=== PATIENT | female | born 1970 | race Caucasian/White ===

== ENCOUNTER 2018-08-05 14:03 | Inpatient (IN) | payer SELFPAY ==
[2018-08-05 14:49] VITALS: BMI 32.5
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
[2018-08-06] MEDS ORDERED: MAGNESIUM HYDROX 2400MG/30ML ORAL SUSPENSION 30 ML CUP PO PRN (00:04)
[2018-08-06] MEDS ORDERED: MAGNESIUM CITRATE 300 ML BOTTLE PO PRN (00:04)
[2018-08-06] MEDS ORDERED: DICYCLOMINE HCL 10 MG CAPSULE PO PRN (00:04)
[2018-08-06] MEDS ORDERED: ONDANSETRON *ODT* 4 MG TABLET SL PRN (00:04)
[2018-08-06] MEDS ORDERED: ACETAMINOPHEN 325 MG TABLET (FP) PO PRN ×2 (00:04)
[2018-08-06] MEDS ORDERED: BISMUTH SUBSALICYLATE 524 MG/30 ML UD PO PRN (00:04)
[2018-08-06] MEDS ORDERED: MAG HYDROX/AL HYDROX/SIMETH 30 ML UNIT-DOSE CUP PO PRN (00:04)
[2018-08-06] MEDS ORDERED: guaiFENesin 200 MG/10 ML 10 ML UNIT-DOSE CUPS PO PRN (00:04)
[2018-08-06] MEDS ORDERED: P-EPHED 60MG/TRIPROLIDI 2.5MG TABLET PO PRN (00:04)
[2018-08-06] MEDS ORDERED: hydrOXYzine PAMOATE 25 MG CAPSULE (FP) PO PRN (00:04)
[2018-08-06] MEDS ORDERED: MENTHOL/PHENOL 1 EACH UD MM PRN (00:04)
[2018-08-06] MEDS ORDERED: METHOCARBAMOL 500 MG TABLET PO PRN (00:04)
[2018-08-06] MEDS: chlordiazePOXIDE HCL 25 MG CAPSULE PO PRN ×2 (00:43→14:36)
[2018-08-06] MEDS: MELATONIN 5 MG TABLETS PO PRN ×2 (00:58→22:06)
[2018-08-06] MEDS: chlordiazePOXIDE HCL 25 MG CAPSULE PO SCH ×4 (05:37→22:04)
[2018-08-06] MEDS: AMOX TR/POT CLAV 875MG/125MG TABLETS (FP) PO SCH ×2 (07:17→17:14)
[2018-08-06 10:16] LABS: ALBUMIN 3.7 g/dl (3.4-5.0); BILIRUBIN,TOTAL 0.7 mg/dL (0.2-1); CALCIUM 8.8 mg/dL (8.5-10.1); CREATININE 0.6 mg/dL (0.55-1.3); POTASSIUM 3.4 mmol/L (3.5-5.1); TOT PROT 7.4 g/dl (6.4-8.2)
[2018-08-06 10:23] LABS: BASO % 1.2 % (0-2.0); EOS % 8.1 % (0-4.5); HEMATOCRIT 37.6 % (32.4-45.2); HEMOGLOBIN 12.5 GM/dL (10.7-15.3); LYMPH % 24.9 % (8-40); MCH 31.3 pg (25.7-33.7); MCHC 33.3 g/dl (32.0-36.0); MEAN CELL VOLUME 93.8 fl (80-96); MEAN PLT VOLUME 6.9 fl (7.5-11.1); MONO % 7.3 % (3.8-10.2); NEUT % 58.5 % (42.8-82.8); PLATELET COUNT 173 K/MM3 (134-434); RBC 4.01 M/mm3 (3.60-5.2); RDW 14.3 % (11.6-15.6); WHITE BLOOD COUNT 6.3 K/mm3 (4.0-10.0)
[2018-08-06] MEDS: PRENATAL VITAMINS W/ FOLIC ACID TABLET (FP) PO SCH (10:56)
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
--- NOTE | 2018-08-06 11:31 | PN ---
[facility] Progress Note Note: Patient does not want to be seen
--- NOTE | 2018-08-06 11:32 | EKG ---
Test Reason : Blood Pressure : / mmHG Vent. Rate : 087 BPM Atrial Rate : 087 BPM P-R Int : 160 ms QRS Dur : 086 ms QT Int : 434 ms P-R-T Axes : 059 060 030 degrees QTc Int : 522 ms NORMAL SINUS RHYTHM PROLONGED QT ABNORMAL ECG NO PREVIOUS ECGS AVAILABLE Confirmed by Zachary Wade MD ([id number]) on 08/06/2018 11:31:36 AM Referred By: Confirmed By:Zachary Wade MD
[2018-08-06] MEDS: POTASSIUM CHLORIDE ORAL LIQUID 20 MEQ/15 ML PO SCH (12:57)
[2018-08-06 20:50] LABS: URINE APPEARANCE CLOUDY; URINE BILIRUBIN NEGATIVE (NEGATIVE); URINE COLOR YELLOW; URINE GLUCOSE (UA) NEGATIVE (NEGATIVE); URINE KETONE 1+ (NEGATIVE); URINE LEUK ESTERASE 3+ (NEGATIVE); URINE NITRITE POSITIVE (NEGATIVE); URINE PROTEIN TRACE (NEGATIVE)
[2018-08-06] MEDS: THIAMINE HCL 100 MG TABLET (FP) PO SCH (22:04)
[2018-08-06] MEDS: IBUPROFEN 400 MG TABLET (FP) PO PRN (22:05)
[2018-08-06 22:13] LABS: URINE RBC 4 /hpf (0-4)
[2018-08-06 22:14] LABS: EPI CELLS 4 /HPF (0-5/HPF); HYALINE CASTS 9 /lpf (0-8); URINE BACTERIA 582 /hpf (NEGATIVE); URINE WBC 198 /hpf (0-5)
[2018-08-07] MEDS: chlordiazePOXIDE HCL 25 MG CAPSULE PO SCH ×4 (06:14→22:12)
[2018-08-07] MEDS: AMOX TR/POT CLAV 875MG/125MG TABLETS (FP) PO SCH ×2 (07:04→18:32)
[2018-08-07] MEDS: IBUPROFEN 400 MG TABLET (FP) PO PRN (08:01)
[2018-08-07] MEDS ORDERED: IBUPROFEN 600 MG TABLET (FP) PO PRN (09:42)
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
[2018-08-07] MEDS: PRENATAL VITAMINS W/ FOLIC ACID TABLET (FP) PO SCH (10:03)
[2018-08-07] MEDS: POTASSIUM CHLORIDE ORAL LIQUID 20 MEQ/15 ML PO SCH (10:04)
[2018-08-07] MEDS: FLUoxetine HCL 20 MG CAPSULE (FP) PO SCH (10:47)
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
[2018-08-07] MEDS: MELATONIN 5 MG TABLETS PO PRN (22:12)
[2018-08-07] MEDS: THIAMINE HCL 100 MG TABLET (FP) PO SCH (22:12)
[2018-08-08] MEDS ORDERED: chlordiazePOXIDE HCL 10 MG CAPSULE PO PRN (05:00)
[2018-08-08] MEDS: chlordiazePOXIDE HCL 10 MG CAPSULE PO SCH ×4 (05:22→22:16)
[2018-08-08] MEDS: AMOX TR/POT CLAV 875MG/125MG TABLETS (FP) PO SCH ×2 (07:50→18:01)
[2018-08-08] MEDS: FLUoxetine HCL 20 MG CAPSULE (FP) PO SCH (10:04)
[2018-08-08] MEDS: PRENATAL VITAMINS W/ FOLIC ACID TABLET (FP) PO SCH (10:04)
[2018-08-08] MEDS ORDERED: NAPHAZOLINE/PHENIRAMINE OPHTHALMIC 15 ML BOTTLE OU PRN (10:11)
[2018-08-08] MEDS: POTASSIUM CHLORIDE ORAL LIQUID 20 MEQ/15 ML PO SCH (11:42)
--- NOTE | 2018-08-08 12:05 | PN ---
S CIWA - CIWA Score Nausea/Vomitin-No Nausea/No Vomiting Muscle Tremors: 2 Anxiety: 1-Mildly Anxious Agitation: 1-Slight > Activity Paroxysmal Sweats: No Perspiration Orientation: 0-Oriented Tacttile Disturbances: 0-None Auditory Disturbances: 0-None Visual Disturbances: 0-None Headache: 1-Very Mild CIWA-Ar Total Score: 5 [facility] Progress Note (SOAP) Subjective: mild headache dry/itchy eyes anxiety Objective: 08/08/18 12:04 Vital Signs Temperature 97.7 F 08/08/18 10:02 Pulse Rate 86 08/08/18 10:02 Respiratory Rate 18 08/08/18 10:02 Blood Pressure 125/91 08/08/18 10:02 O2 Sat by Pulse Oximetry (%) Laboratory Tests 08/06/18 08/06/18 08/06/18 07:35 07:35 07:40 WBC 6.3 RBC 4.01 Hgb 12.5 Hct 37.6 MCV 93.8 MCH 31.3 MCHC 33.3 RDW 14.3 Plt Count 173 MPV 6.9 L Absolute Neuts (auto) 3.7 Neutrophils % 58.5 Lymphocytes % 24.9 Monocytes % 7.3 Eosinophils % 8.1 H Basophils % 1.2 Nucleated RBC % 0 Sodium 138 Potassium 3.4 L Chloride 100 Carbon Dioxide 28 Anion Gap 11 BUN 8 Creatinine 0.6 Est GFR (CKD-EPI)AfAm 126.69 Est GFR (CKD-EPI)NonAf 109.31 Random Glucose 79 Calcium 8.8 Total Bilirubin 0.7 AST 96 H ALT 71 H Alkaline Phosphatase 78 Total Protein 7.4 Albumin 3.7 Urine Color Urine Appearance Urine pH Ur Specific [place] Urine Protein Urine Glucose (UA) Urine Ketones Urine Blood Urine Nitrite Urine Bilirubin Urine Urobilinogen Ur Leukocyte Esterase Urine WBC (Auto) Urine RBC (Auto) Urine Casts (Auto) U Epithel Cells (Auto) Urine Bacteria (Auto) RPR Titer Nonreactive 08/06/18 15:12 WBC RBC Hgb Hct MCV MCH MCHC RDW Plt Count MPV Absolute Neuts (auto) Neutrophils % Lymphocytes % Monocytes % Eosinophils % Basophils % Nucleated RBC % Sodium Potassium Chloride Carbon Dioxide Anion Gap BUN Creatinine Est GFR (CKD-EPI)AfAm Est GFR (CKD-EPI)NonAf Random Glucose Calcium Total Bilirubin AST ALT Alkaline Phosphatase Total Protein Albumin Urine Color Yellow Urine Appearance Cloudy Urine pH 8.0 Ur Specific [place] 1.018 Urine Protein Trace Urine Glucose (UA) Negative Urine Ketones 1+ H Urine Blood Negative Urine Nitrite Positive H Urine Bilirubin Negative Urine Urobilinogen 1.0 Ur Leukocyte Esterase 3+ H Urine WBC (Auto) 198 Urine RBC (Auto) 4 Urine Casts (Auto) 9 U Epithel Cells (Auto) 4 Urine Bacteria (Auto) 582 RPR Titer labs noted pt denies UTI aaox3 ambulating no acute distress Assessment: 08/08/18 12:04 mild withdrawal sx Plan: continue detox increase fluids visine ordered vitamin a&d ointment.
[2018-08-08] MEDS: VITAMINS A AND D TOPICAL OINTMENT 60 GM TUBE TP SCH ×3 (13:22→23:43)
[2018-08-08] MEDS: THIAMINE HCL 100 MG TABLET (FP) PO SCH (22:16)
[2018-08-08] MEDS: MELATONIN 5 MG TABLETS PO PRN (22:17)
[2018-08-09] MEDS: chlordiazePOXIDE HCL 10 MG CAPSULE PO SCH ×2 (06:53→17:14)
[2018-08-09] MEDS: VITAMINS A AND D TOPICAL OINTMENT 60 GM TUBE TP SCH ×3 (06:53→17:23)
[2018-08-09] MEDS: AMOX TR/POT CLAV 875MG/125MG TABLETS (FP) PO SCH ×2 (07:10→17:14)
[2018-08-09] MEDS: FLUoxetine HCL 20 MG CAPSULE (FP) PO SCH (10:40)
[2018-08-09] MEDS: PRENATAL VITAMINS W/ FOLIC ACID TABLET (FP) PO SCH (10:40)
--- NOTE | 2018-08-09 12:36 | PN ---
[facility] CIWA - CIWA Score Nausea/Vomitin-No Nausea/No Vomiting Muscle Tremors: 1-None Visible, but [place] Anxiety: 1-Mildly Anxious Agitation: 1-Slight > Activity Paroxysmal Sweats: No Perspiration Orientation: 0-Oriented Tacttile Disturbances: 0-None Auditory Disturbances: 0-None Visual Disturbances: 0-None Headache: 0-None Present CIWA-Ar Total Score: 3 [facility] Progress Note (SOAP) Subjective: anxiety Objective: 08/09/18 12:35 Vital Signs Temperature 98.5 F 08/09/18 10:36 Pulse Rate 85 08/09/18 10:36 Respiratory Rate 18 08/09/18 10:36 Blood Pressure 122/79 08/09/18 10:36 O2 Sat by Pulse Oximetry (%) aaox3 ambulating no acute distress Assessment: 08/09/18 12:36 mild withdrawal sx Plan: continue detox increase fluids d/c in am
[2018-08-09] MEDS: THIAMINE HCL 100 MG TABLET (FP) PO SCH (22:31)
[2018-08-09] MEDS: MELATONIN 5 MG TABLETS PO PRN (22:32)
[2018-08-10] MEDS: VITAMINS A AND D TOPICAL OINTMENT 60 GM TUBE TP SCH ×2 (01:52→06:15)
[2018-08-10] MEDS: chlordiazePOXIDE HCL 10 MG CAPSULE PO SCH (05:58)
[2018-08-10] MEDS: AMOX TR/POT CLAV 875MG/125MG TABLETS (FP) PO SCH (07:08)
[2018-08-10 09:24] VITALS: BP 110/57; PULSE 78; TEMP 97.7
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
== END 2018-08-10 09:13 | disposition home or self-care (01) | DRG 775 ==
LOC: YASAS 14:03 → Y6N 23:52
PROVIDERS: ADMIT Surgery; ATTEND Surgery
PROC: HZ2ZZZZ Detoxification Services for Substance Abuse Treatment (ICD-10-PCS; principal; 2018-08-05)
DX: F10.230 Alcohol dependence with withdrawal, uncomplicated (principal); F10.280 Alcohol dependence with alcohol-induced anxiety disorder; F10.282 Alcohol dependence with alcohol-induced sleep disorder; F43.10 Post-traumatic stress disorder, unspecified; S09.93XD Unspecified injury of face, subsequent encounter; W19.XXXD Unspecified fall, subsequent encounter
CPT/HCPCS: 36415; 80053; 81003; 85025; 86593; 93005; 93010

== ENCOUNTER 2018-08-05 15:49 | Emergency (ER) | payer SELFPAY | END 2018-08-05 23:24 | disposition short-term general hospital (02) | LOC: JER 15:49 ==

== ENCOUNTER 2018-08-12 13:13 | Inpatient (IN) | payer OTHER ==
[2018-08-12 17:33] VITALS: BMI 31.4
[2018-08-12] MEDS ORDERED: MAGNESIUM HYDROX 2400MG/30ML ORAL SUSPENSION 30 ML CUP PO PRN (23:44)
[2018-08-12] MEDS ORDERED: ACETAMINOPHEN 325 MG TABLET (FP) PO PRN (23:44)
[2018-08-12] MEDS ORDERED: IBUPROFEN 400 MG TABLET (FP) PO PRN (23:44)
[2018-08-12] MEDS ORDERED: MAG HYDROX/AL HYDROX/SIMETH 30 ML UNIT-DOSE CUP PO PRN (23:44)
[2018-08-12] MEDS ORDERED: MAGNESIUM CITRATE 300 ML BOTTLE PO PRN (23:44)
[2018-08-12] MEDS ORDERED: LOPERAMIDE HCL 2 MG CAPSULE PO PRN (23:44)
[2018-08-12] MEDS ORDERED: guaiFENesin 200 MG/10 ML 10 ML UNIT-DOSE CUPS PO PRN (23:44)
--- NOTE | 2018-08-13 00:09 | HP ---
[facility] Rehab Assess/Revision - Admission History Admitted to Rehab from: [facility] [place] - Vital signs Vital Signs: Vital Signs Period Temp Pulse Resp BP Sys/Khan Pulse Ox Last 24 Hr 97.1 F-98.2 F 64-81 18-18 95-118/69-77 - Findings Detox History & Physical reviewed: Yes Concur with findings: Yes Comments/Additional Findings: PLEASE SEE THE ORDER SHEET FOR MORE DETAILS. FURTHER ORDERS - PER THE ATTENDINGS. Inpatient Rehab Admission - Rehab Decision to Admit Inpatient rehab admission?: Yes - Initial Determination Are CD services needed?: No Free of communicable disease: No Not in need of hospitalization: No - Rehab Admission Criteria Previous failed treatment: No Poor recovery environment: Yes Comorbidities: No Lacks judgement: Yes Patient is meeting Inpatient Rehab admission criteria:: Yes
[2018-08-13] MEDS: hydrOXYzine PAMOATE 25 MG CAPSULE (FP) PO PRN ×2 (00:51→21:15)
[2018-08-13] MEDS: MELATONIN 5 MG TABLETS PO PRN ×2 (00:51→21:15)
[2018-08-13] MEDS: PRENATAL VITAMINS W/ FOLIC ACID TABLET (FP) PO SCH (09:59)
[2018-08-13] MEDS: FLUoxetine HCL 20 MG CAPSULE (FP) PO SCH (09:59)
[2018-08-13 11:40] LABS: HEMOGLOBIN 12.4 GM/dL (10.7-15.3); MCH 31.7 pg (25.7-33.7); MCHC 33.5 g/dl (32.0-36.0); MEAN CELL VOLUME 94.7 fl (80-96); MEAN PLT VOLUME 7.4 fl (7.5-11.1); PLATELET COUNT 252 K/MM3 (134-434); RBC 3.91 M/mm3 (3.60-5.2); RDW 14.4 % (11.6-15.6); WHITE BLOOD COUNT 6.1 K/mm3 (4.0-10.0)
[2018-08-13 12:03] LABS: PH,URINE 5.5 (5.0-8.0); URINE APPEARANCE CLEAR; URINE BILIRUBIN NEGATIVE (NEGATIVE); URINE COLOR YELLOW; URINE GLUCOSE (UA) NEGATIVE (NEGATIVE); URINE KETONE NEGATIVE (NEGATIVE); URINE LEUK ESTERASE NEGATIVE (NEGATIVE); URINE NITRITE NEGATIVE (NEGATIVE); URINE PROTEIN NEGATIVE (NEGATIVE); URINE UROBILINOGEN 0.2 mg/dL (0.2-1.0)
[2018-08-13 12:04] LABS: ALBUMIN 3.8 g/dl (3.4-5.0); BILIRUBIN,TOTAL 0.5 mg/dL (0.2-1); CREATININE 0.7 mg/dL (0.55-1.3); POTASSIUM 4.2 mmol/L (3.5-5.1)
[2018-08-13] MEDS: MENTHOL/PHENOL 1 EACH UD MM PRN (13:40)
[2018-08-13] MEDS: THIAMINE HCL 100 MG TABLET (FP) PO SCH (21:14)
[2018-08-14] MEDS: MENTHOL/PHENOL 1 EACH UD MM PRN (08:58)
[2018-08-14] MEDS: FLUoxetine HCL 20 MG CAPSULE (FP) PO SCH (09:00)
[2018-08-14] MEDS: PRENATAL VITAMINS W/ FOLIC ACID TABLET (FP) PO SCH (09:00)
[2018-08-14] MEDS: THIAMINE HCL 100 MG TABLET (FP) PO SCH (21:53)
[2018-08-14] MEDS: MELATONIN 5 MG TABLETS PO PRN (21:54)
[2018-08-14] MEDS: hydrOXYzine PAMOATE 25 MG CAPSULE (FP) PO PRN (21:54)
[2018-08-15] MEDS: MENTHOL/PHENOL 1 EACH UD MM PRN ×2 (06:31→11:42)
[2018-08-15] MEDS: PRENATAL VITAMINS W/ FOLIC ACID TABLET (FP) PO SCH (10:14)
[2018-08-15] MEDS: FLUoxetine HCL 20 MG CAPSULE (FP) PO SCH (10:14)
[2018-08-15] MEDS: MELATONIN 5 MG TABLETS PO PRN (21:37)
[2018-08-15] MEDS: hydrOXYzine PAMOATE 25 MG CAPSULE (FP) PO PRN (21:37)
[2018-08-15] MEDS: THIAMINE HCL 100 MG TABLET (FP) PO SCH (21:37)
[2018-08-16] MEDS: FLUoxetine HCL 20 MG CAPSULE (FP) PO SCH (10:09)
[2018-08-16] MEDS: PRENATAL VITAMINS W/ FOLIC ACID TABLET (FP) PO SCH (10:09)
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
[2018-08-16] MEDS: P-EPHED 60MG/TRIPROLIDI 2.5MG TABLET PO PRN (12:46)
[2018-08-16] MEDS: THIAMINE HCL 100 MG TABLET (FP) PO SCH (21:26)
[2018-08-16] MEDS: MELATONIN 5 MG TABLETS PO PRN (21:26)
[2018-08-16] MEDS: hydrOXYzine PAMOATE 25 MG CAPSULE (FP) PO PRN (21:28)
[2018-08-17] MEDS: FLUoxetine HCL 20 MG CAPSULE (FP) PO SCH (10:22)
[2018-08-17] MEDS: PRENATAL VITAMINS W/ FOLIC ACID TABLET (FP) PO SCH (10:22)
[2018-08-17] MEDS: P-EPHED 60MG/TRIPROLIDI 2.5MG TABLET PO PRN (14:49)
[2018-08-17] MEDS: MELATONIN 5 MG TABLETS PO PRN (21:14)
[2018-08-17] MEDS: hydrOXYzine PAMOATE 25 MG CAPSULE (FP) PO PRN (21:14)
[2018-08-17] MEDS: THIAMINE HCL 100 MG TABLET (FP) PO SCH (21:14)
[2018-08-18] MEDS: PRENATAL VITAMINS W/ FOLIC ACID TABLET (FP) PO SCH (10:29)
[2018-08-18] MEDS: FLUoxetine HCL 20 MG CAPSULE (FP) PO SCH (10:29)
[2018-08-18] MEDS: P-EPHED 60MG/TRIPROLIDI 2.5MG TABLET PO PRN ×2 (10:30→21:29)
--- NOTE | 2018-08-18 14:06 | PN ---
[facility] Progress Note Note: Patient is scheduled for discharge tomorrow. Script for 30 days supply of Prozac 20 mg/day will be electronically transmitted to [facility] at [address] [place] [id number]
[2018-08-18] MEDS: THIAMINE HCL 100 MG TABLET (FP) PO SCH (21:28)
[2018-08-18] MEDS: hydrOXYzine PAMOATE 25 MG CAPSULE (FP) PO PRN (21:28)
[2018-08-19 07:12] VITALS: BP 115/79; PULSE 80; TEMP 97.8
[2018-08-19] MEDS: PRENATAL VITAMINS W/ FOLIC ACID TABLET (FP) PO SCH (09:32)
[2018-08-19] MEDS: FLUoxetine HCL 20 MG CAPSULE (FP) PO SCH (09:32)
--- NOTE | 2018-08-19 09:39 | PN ---
[facility] Progress Note (SOAP) Subjective: PT COMPLETED REHAB AND DISCHARGED TODAY. PT MET WITH COUNSELLING AND HAS BEEN REFERRED TO [facility] FOR CD AFTERCARE. PT REPORTS SHE HAS A PCP DR. HALL(PT NOT SURE OF SPELLING) FOR MEDICAL AND A PSYCHIATRIST DR. WALKER ON [address] [facility] IN [facility]. PT IS ALERT O X 3. DENIES S/H/I. Objective: 08/19/18 09:37 Vital Signs - 24 hr 08/19/18 08/19/18 08/19/18 00:30 03:30 07:11 Temperature 97.8 F Pulse Rate 80 Respiratory 18 18 18 Rate Blood Pressure 115/79 Laboratory Tests 08/13/18 08/13/18 08/13/18 08:40 08:40 08:40 WBC 6.1 RBC 3.91 Hgb 12.4 Hct 37.0 MCV 94.7 MCH 31.7 MCHC 33.5 RDW 14.4 Plt Count 252 D MPV 7.4 L Sodium 134 L Potassium 4.2 Chloride 101 Carbon Dioxide 27 Anion Gap 6 L BUN 9 Creatinine 0.7 Est GFR (CKD-EPI)AfAm 120.43 Est GFR (CKD-EPI)NonAf 103.90 Random Glucose 82 Calcium 9.0 Total Bilirubin 0.5 AST 25 ALT 42 Alkaline Phosphatase 64 Total Protein 7.0 Albumin 3.8 Urine Color Urine Appearance Urine pH Ur Specific [place] Urine Protein Urine Glucose (UA) Urine Ketones Urine Blood Urine Nitrite Urine Bilirubin Urine Urobilinogen Ur Leukocyte Esterase RPR Titer Nonreactive 08/13/18 09:30 WBC RBC Hgb Hct MCV MCH MCHC RDW Plt Count MPV Sodium Potassium Chloride Carbon Dioxide Anion Gap BUN Creatinine Est GFR (CKD-EPI)AfAm Est GFR (CKD-EPI)NonAf Random Glucose Calcium Total Bilirubin AST ALT Alkaline Phosphatase Total Protein Albumin Urine Color Yellow Urine Appearance Clear Urine pH 5.5 D Ur Specific Pinon 1.009 L Urine Protein Negative Urine Glucose (UA) Negative Urine Ketones Negative Urine Blood Negative Urine Nitrite Negative Urine Bilirubin Negative Urine Urobilinogen 0.2 Ur Leukocyte Esterase Negative RPR Titer Home Medications Medication Instructions Recorded Fluoxetine HCl [Prozac -] 20 mg PO DAILY #30 capsule 08/18/18 08/19/18 09:43 Assessment: 08/19/18 09:37 NAD MEDICALLY STABLE Plan: FOLLOW UP WITH CD AFTERCARE RECOMMEDATION. FOLLOW UP WITH MEDICAL MANAGEMENT WITHIN 1 WEEK AFTER DISCHARGE.
== END 2018-08-19 09:50 | disposition home or self-care (01) | DRG 772 ==
LOC: YASAS 13:13 → Y3E 20:21
PROVIDERS: ADMIT Neuromusculoskeletal Medicine & OMM; ATTEND Neuromusculoskeletal Medicine & OMM
PROC: HZ42ZZZ Group Counseling for Substance Abuse Treatment, Cognitive-Behavioral (ICD-10-PCS; principal; 2018-08-12)
DX: F10.20 Alcohol dependence, uncomplicated (principal); J32.4 Chronic pansinusitis; S09.93XA Unspecified injury of face, initial encounter; Z86.69 Personal history of other diseases of the nervous system and sense organs; R56.9 Unspecified convulsions; X58.XXXA Exposure to other specified factors, initial encounter; Y93.89 Activity, other specified; Y92.89 Other specified places as the place of occurrence of the external cause; Y99.8 Other external cause status
CPT/HCPCS: 36415; 80053; 81003; 85027; 86593

== ENCOUNTER 2018-09-03 15:51 | Inpatient (IN) | payer OTHER ==
[2018-09-03 18:45] VITALS: BMI 29.2
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
[2018-09-03] MEDS ORDERED: P-EPHED 60MG/TRIPROLIDI 2.5MG TABLET PO PRN (20:24)
[2018-09-03] MEDS ORDERED: METHOCARBAMOL 500 MG TABLET PO PRN (20:24)
[2018-09-03] MEDS ORDERED: DICYCLOMINE HCL 10 MG CAPSULE PO PRN (20:24)
[2018-09-03] MEDS ORDERED: ACETAMINOPHEN 325 MG TABLET (FP) PO PRN ×2 (20:24)
[2018-09-03] MEDS ORDERED: BISMUTH SUBSALICYLATE 524 MG/30 ML UD PO PRN (20:24)
[2018-09-03] MEDS ORDERED: MAGNESIUM CITRATE 300 ML BOTTLE PO PRN (20:24)
[2018-09-03] MEDS ORDERED: guaiFENesin 200 MG/10 ML 10 ML UNIT-DOSE CUPS PO PRN (20:24)
[2018-09-03] MEDS ORDERED: MENTHOL/PHENOL 1 EACH UD MM PRN (20:24)
[2018-09-03] MEDS ORDERED: ONDANSETRON *ODT* 4 MG TABLET SL PRN (20:24)
[2018-09-03] MEDS ORDERED: MELATONIN 5 MG TABLETS PO PRN (20:24)
[2018-09-03] MEDS ORDERED: IBUPROFEN 400 MG TABLET (FP) PO PRN (20:24)
[2018-09-03] MEDS ORDERED: MAG HYDROX/AL HYDROX/SIMETH 30 ML UNIT-DOSE CUP PO PRN (20:24)
[2018-09-03] MEDS ORDERED: MAGNESIUM HYDROX 2400MG/30ML ORAL SUSPENSION 30 ML CUP PO PRN (20:24)
[2018-09-03] MEDS: chlordiazePOXIDE HCL 25 MG CAPSULE PO SCH (22:13)
[2018-09-03] MEDS: THIAMINE HCL 100 MG TABLET (FP) PO SCH (22:14)
[2018-09-04] MEDS: chlordiazePOXIDE HCL 25 MG CAPSULE PO PRN ×2 (00:42→13:33)
[2018-09-04] MEDS: chlordiazePOXIDE HCL 25 MG CAPSULE PO SCH ×4 (05:40→22:16)
--- NOTE | 2018-09-04 08:04 | EKG ---
Test Reason : Blood Pressure : / mmHG Vent. Rate : 098 BPM Atrial Rate : 098 BPM P-R Int : 142 ms QRS Dur : 084 ms QT Int : 408 ms P-R-T Axes : 039 090 030 degrees QTc Int : 520 ms SINUS RHYTHM WITH PREMATURE SUPRAVENTRICULAR COMPLEXES RIGHTWARD AXIS PROLONGED QT ABNORMAL ECG WHEN COMPARED WITH ECG OF 06-AUG-2018 04:59, PREMATURE SUPRAVENTRICULAR COMPLEXES ARE NOW PRESENT Confirmed by CELSA LUCAS, SMITH ([id number]) on 09/04/2018 8:04:18 AM Referred By: Confirmed By:SMITH STEEN MD
[2018-09-04] MEDS: hydrOXYzine PAMOATE 25 MG CAPSULE (FP) PO PRN (08:05)
[2018-09-04] MEDS: PRENATAL VITAMINS W/ FOLIC ACID TABLET (FP) PO SCH (10:15)
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
--- NOTE | 2018-09-04 12:03 | PN ---
S CIWA - CIWA Score Nausea/Vomitin-Mild Nausea/No Vomiting Muscle Tremors: 4-Moderate,w/Arms Extend Anxiety: 4-Mod. Anxious/Guarded Agitation: 4-Moderately Restless Paroxysmal Sweats: 1-Minimal Palms Moist Orientation: 0-Oriented Tacttile Disturbances: 0-None Auditory Disturbances: 0-None Visual Disturbances: 0-None Headache: 0-None Present CIWA-Ar Total Score: 14 [facility] Progress Note (SOAP) Subjective: shakes sweats interrupted sleep agitation nausea Objective: 09/04/18 12:02 Vital Signs Temperature 96.3 F L 09/04/18 10:00 Pulse Rate 95 H 09/04/18 10:00 Respiratory Rate 18 09/04/18 10:00 Blood Pressure 136/74 09/04/18 10:00 O2 Sat by Pulse Oximetry (%) Laboratory Tests 09/03/18 18:45 POC Urine HCG, Qual Negative rest of labs pending aaox3 ambulating no acute distress Assessment: 09/04/18 12:03 withdrawals sx Plan: continue detox increase fluids pending labs zofran prn
[2018-09-04] MEDS ORDERED: HYDROCORTISONE 1% TOPICAL CREAM 30 GM TUBE TP PRN (12:05)
[2018-09-04] MEDS: FLUoxetine HCL 20 MG CAPSULE (FP) PO SCH (13:42)
[2018-09-04] MEDS: THIAMINE HCL 100 MG TABLET (FP) PO SCH (22:15)
[2018-09-04] MEDS: MELATONIN 5 MG TABLETS PO PRN (22:16)
[2018-09-05] MEDS: chlordiazePOXIDE HCL 25 MG CAPSULE PO SCH ×3 (06:10→17:13)
[2018-09-05] MEDS: FLUoxetine HCL 20 MG CAPSULE (FP) PO SCH (10:16)
[2018-09-05] MEDS: PRENATAL VITAMINS W/ FOLIC ACID TABLET (FP) PO SCH (10:16)
[2018-09-05] MEDS: IBUPROFEN 600 MG TABLET (FP) PO PRN (10:17)
[2018-09-05 11:08] LABS: ALBUMIN 4.2 g/dl (3.4-5.0); BILIRUBIN,TOTAL 1.4 mg/dL (0.2-1); BLOOD UREA NITROGEN 5.4 mg/dL (7-18); CALCIUM 9.4 mg/dL (8.5-10.1); CREATININE 0.8 mg/dL (0.55-1.3); POTASSIUM 3.8 mmol/L (3.5-5.1); TOT PROT 8.3 g/dl (6.4-8.2)
--- NOTE | 2018-09-05 12:05 | PN ---
[facility] CIWA - CIWA Score Nausea/Vomitin-No Nausea/No Vomiting Muscle Tremors: 3 Anxiety: 3 Agitation: 3 Paroxysmal Sweats: 2 Orientation: 0-Oriented Tacttile Disturbances: 0-None Auditory Disturbances: 0-None Visual Disturbances: 0-None Headache: 0-None Present CIWA-Ar Total Score: 11 S Progress Note (SOAP) Subjective: sweats insomnia headache Objective: 09/05/18 12:03 Vital Signs Temperature 98.1 F 09/05/18 09:28 Pulse Rate 92 H 09/05/18 09:28 Respiratory Rate 18 09/05/18 09:28 Blood Pressure 130/85 09/05/18 09:28 O2 Sat by Pulse Oximetry (%) Laboratory Tests 09/03/18 09/05/18 18:45 07:30 Sodium 135 L Potassium 3.8 Chloride 97 L Carbon Dioxide 30 Anion Gap 7 L BUN 5.4 L Creatinine 0.8 Est GFR (CKD-EPI)AfAm 102.47 Est GFR (CKD-EPI)NonAf 88.41 Random Glucose 84 Calcium 9.4 Total Bilirubin 1.4 H AST 150 H ALT 104 H Alkaline Phosphatase 103 Total Protein 8.3 H Albumin 4.2 POC Urine HCG, Qual Negative labs noted repeat labs aaox3 ambulating no acute distress Assessment: 09/05/18 12:04 withdrawal sx Plan: continue detox increase fluids motrin prn imitrex 25mg x one ordered tylenol d/c f/u on repeated labs
[2018-09-05] MEDS ORDERED: SUMAtriptan SUCCINATE 25 MG TABLET PO ONE (12:30)
[2018-09-05] MEDS: THIAMINE HCL 100 MG TABLET (FP) PO SCH (22:34)
[2018-09-05] MEDS: chlordiazePOXIDE HCL 10 MG CAPSULE PO SCH (22:35)
[2018-09-05] MEDS: MELATONIN 5 MG TABLETS PO PRN (22:35)
[2018-09-05] MEDS ORDERED: chlordiazePOXIDE HCL 10 MG CAPSULE PO PRN (23:00)
[2018-09-06] MEDS: chlordiazePOXIDE HCL 10 MG CAPSULE PO SCH ×4 (05:55→22:19)
[2018-09-06] MEDS: FLUoxetine HCL 20 MG CAPSULE (FP) PO SCH (10:46)
[2018-09-06] MEDS: PRENATAL VITAMINS W/ FOLIC ACID TABLET (FP) PO SCH (10:46)
[2018-09-06] MEDS: IBUPROFEN 600 MG TABLET (FP) PO PRN (10:47)
[2018-09-06 11:52] LABS: BASO % 0.5 % (0-2.0); HEMATOCRIT 40.4 % (32.4-45.2); HEMOGLOBIN 13.4 GM/dL (10.7-15.3); LYMPH % 25.8 % (8-40); MCH 30.9 pg (25.7-33.7); MCHC 33.3 g/dl (32.0-36.0); MEAN CELL VOLUME 92.9 fl (80-96); MEAN PLT VOLUME 8.6 fl (7.5-11.1); MONO % 7.9 % (3.8-10.2); NEUT % 57.8 % (42.8-82.8); PLATELET COUNT 108 K/MM3 (134-434); RBC 4.35 M/mm3 (3.60-5.2); RDW 14.1 % (11.6-15.6)
[2018-09-06 11:56] LABS: ALBUMIN 4.1 g/dl (3.4-5.0); BILIRUBIN,TOTAL 1.1 mg/dL (0.2-1); BLOOD UREA NITROGEN 9.9 mg/dL (7-18); CALCIUM 9.8 mg/dL (8.5-10.1); CREATININE 0.8 mg/dL (0.55-1.3); TOT PROT 7.9 g/dl (6.4-8.2)
--- NOTE | 2018-09-06 12:10 | PN ---
S CIWA - CIWA Score Nausea/Vomitin-No Nausea/No Vomiting Muscle Tremors: 3 Anxiety: 1-Mildly Anxious Agitation: 2 Paroxysmal Sweats: 1-Minimal Palms Moist Orientation: 0-Oriented Tacttile Disturbances: 0-None Auditory Disturbances: 0-None Visual Disturbances: 0-None Headache: 0-None Present CIWA-Ar Total Score: 7 S Progress Note (SOAP) Subjective: slept much better anxiety Objective: 09/06/18 12:09 Vital Signs Temperature 97.7 F 09/06/18 09:27 Pulse Rate 86 09/06/18 09:27 Respiratory Rate 18 09/06/18 09:27 Blood Pressure 112/77 09/06/18 09:27 O2 Sat by Pulse Oximetry (%) Laboratory Tests 09/03/18 09/05/18 09/06/18 18:45 07:30 07:00 WBC 8.0 RBC 4.35 Hgb 13.4 Hct 40.4 MCV 92.9 MCH 30.9 MCHC 33.3 RDW 14.1 Plt Count 108 L D MPV 8.6 D Absolute Neuts (auto) 4.6 Neutrophils % 57.8 Lymphocytes % 25.8 Monocytes % 7.9 Eosinophils % 8.0 H Basophils % 0.5 Nucleated RBC % 0 Sodium 135 L Potassium 3.8 Chloride 97 L Carbon Dioxide 30 Anion Gap 7 L BUN 5.4 L Creatinine 0.8 Est GFR (CKD-EPI)AfAm 102.47 Est GFR (CKD-EPI)NonAf 88.41 Random Glucose 84 Calcium 9.4 Total Bilirubin 1.4 H AST 150 H ALT 104 H Alkaline Phosphatase 103 Total Protein 8.3 H Albumin 4.2 POC Urine HCG, Qual Negative 09/06/18 07:00 WBC RBC Hgb Hct MCV MCH MCHC RDW Plt Count MPV Absolute Neuts (auto) Neutrophils % Lymphocytes % Monocytes % Eosinophils % Basophils % Nucleated RBC % Sodium 135 L Potassium 4.0 Chloride 98 Carbon Dioxide 28 Anion Gap 9 BUN 9.9 Creatinine 0.8 Est GFR (CKD-EPI)AfAm 102.47 Est GFR (CKD-EPI)NonAf 88.41 Random Glucose 84 Calcium 9.8 Total Bilirubin 1.1 H AST 113 H ALT 104 H Alkaline Phosphatase 93 Total Protein 7.9 Albumin 4.1 POC Urine HCG, Qual repeated labs indicate liver enzymes improving aaox3 ambulating no acute distress Assessment: 09/06/18 12:10 mild withdrawal sx Plan: continue detox increase fluids
[2018-09-06] MEDS: THIAMINE HCL 100 MG TABLET (FP) PO SCH (22:19)
[2018-09-06] MEDS: MELATONIN 5 MG TABLETS PO PRN (22:20)
[2018-09-07] MEDS: PRENATAL VITAMINS W/ FOLIC ACID TABLET (FP) PO SCH (10:25)
[2018-09-07] MEDS: chlordiazePOXIDE HCL 10 MG CAPSULE PO SCH ×2 (10:25→22:18)
[2018-09-07] MEDS: FLUoxetine HCL 20 MG CAPSULE (FP) PO SCH (10:34)
--- NOTE | 2018-09-07 11:17 | PN ---
S CIWA - CIWA Score Nausea/Vomitin-No Nausea/No Vomiting Muscle Tremors: 1-None Visible, but [place] Anxiety: 3 Agitation: 0-Normal Activity Paroxysmal Sweats: 2 Orientation: 0-Oriented Tacttile Disturbances: 0-None Auditory Disturbances: 0-None Visual Disturbances: 0-None Headache: 0-None Present CIWA-Ar Total Score: 6 S Progress Note (SOAP) Subjective: c/o sweats, mild anxiety, and interrupted sleep. Objective: 09/07/18 11:17 Vital Signs 09/07/18 09/07/18 06:00 10:51 Temperature 97.0 F L 97.2 F L Pulse Rate 70 80 Respiratory 18 18 Rate Blood Pressure 100/64 113/70 Lab Results WBC 8.0 K/mm3 (4.0-10.0) 09/06/18 07:00 RBC 4.35 M/mm3 (3.60-5.2) 09/06/18 07:00 Hgb 13.4 GM/dL (10.7-15.3) 09/06/18 07:00 Hct 40.4 % (32.4-45.2) 09/06/18 07:00 MCV 92.9 fl (80-96) 09/06/18 07:00 MCHC 33.3 g/dl (32.0-36.0) 09/06/18 07:00 RDW 14.1 % (11.6-15.6) 09/06/18 07:00 Plt Count 108 K/MM3 (134-434) L D 09/06/18 07:00 Sodium 135 mmol/L (136-145) L 09/06/18 07:00 Potassium 4.0 mmol/L (3.5-5.1) 09/06/18 07:00 Chloride 98 mmol/L (98-107) 09/06/18 07:00 Carbon Dioxide 28 mmol/L (21-32) 09/06/18 07:00 Anion Gap 9 MMOL/L (8-16) 09/06/18 07:00 BUN 9.9 mg/dL (7-18) 09/06/18 07:00 Creatinine 0.8 mg/dL (0.55-1.3) 09/06/18 07:00 Random Glucose 84 mg/dL (74-106) 09/06/18 07:00 Calcium 9.8 mg/dL (8.5-10.1) 09/06/18 07:00 Labs noted. Assessment: 09/07/18 11:17 AOX3, in no acute distress Full ROM, ambulating in the unit. Mild withdrawal symptoms. Plan: continue detox.
[2018-09-07] MEDS: hydrOXYzine PAMOATE 25 MG CAPSULE (FP) PO PRN (20:03)
[2018-09-07] MEDS: THIAMINE HCL 100 MG TABLET (FP) PO SCH (22:18)
[2018-09-07] MEDS: MELATONIN 5 MG TABLETS PO PRN (22:18)
[2018-09-08 09:31] VITALS: BP 117/78; PULSE 89; TEMP 97.5
--- NOTE | 2018-09-08 11:43 | DS ---
[facility] Detox Discharge Summary Admission Date: 09/03/18 Discharge Date: 09/08/18 - History Present History: Alcohol Dependence Additional Comments: Patient completed detox successfully. Patient is stable for discharge. Instructed to follow up with PCP within 1-2 weeks. Discharged safely. Pertinent Past History: Alcohol dependence Alcohol related seizure disorder Depression PTSD - Physical Exam Results Vital Signs: Vital Signs Temperature 97.5 F L 09/08/18 09:30 Pulse Rate 89 09/08/18 09:30 Respiratory Rate 18 09/08/18 09:30 Blood Pressure 117/78 09/08/18 09:30 O2 Sat by Pulse Oximetry (%) Pertinent Admission Physical Exam Findings: Withdrawal symptoms Laboratory Tests 09/03/18 09/05/18 09/06/18 18:45 07:30 07:00 WBC 8.0 RBC 4.35 Hgb 13.4 Hct 40.4 MCV 92.9 MCH 30.9 MCHC 33.3 RDW 14.1 Plt Count 108 L D MPV 8.6 D Absolute Neuts (auto) 4.6 Neutrophils % 57.8 Lymphocytes % 25.8 Monocytes % 7.9 Eosinophils % 8.0 H Basophils % 0.5 Nucleated RBC % 0 Sodium 135 L Potassium 3.8 Chloride 97 L Carbon Dioxide 30 Anion Gap 7 L BUN 5.4 L Creatinine 0.8 Est GFR (CKD-EPI)AfAm 102.47 Est GFR (CKD-EPI)NonAf 88.41 Random Glucose 84 Calcium 9.4 Total Bilirubin 1.4 H AST 150 H ALT 104 H Alkaline Phosphatase 103 Total Protein 8.3 H Albumin 4.2 POC Urine HCG, Qual Negative 09/06/18 07:00 WBC RBC Hgb Hct MCV MCH MCHC RDW Plt Count MPV Absolute Neuts (auto) Neutrophils % Lymphocytes % Monocytes % Eosinophils % Basophils % Nucleated RBC % Sodium 135 L Potassium 4.0 Chloride 98 Carbon Dioxide 28 Anion Gap 9 BUN 9.9 Creatinine 0.8 Est GFR (CKD-EPI)AfAm 102.47 Est GFR (CKD-EPI)NonAf 88.41 Random Glucose 84 Calcium 9.8 Total Bilirubin 1.1 H AST 113 H ALT 104 H Alkaline Phosphatase 93 Total Protein 7.9 Albumin 4.1 POC Urine HCG, Qual Labs reviewed: plt 108, elevated LFTs (most likely due to alcoholism): encouraged abstinence and inpatient rehab. F/U with PCP within 1-2 weeks for monitoring of abormal lab result. - Treatment Hospital Course: Detox Protocol Followed, Detoxed Safely, Responded well, Discharged Condition Good - Medication Discharge Medications: Ambulatory Orders Fluoxetine HCl [Prozac -] 20 mg PO DAILY #30 capsule 08/18/18 Naltrexone HCl 50 mg PO HS 09/03/18 - Diagnosis (1) Thrombocytopenia Status: Acute (2) Elevated LFTs Status: Acute (3) Alcohol dependence with uncomplicated withdrawal Status: Acute (4) PTSD (post-traumatic stress disorder) Status: Chronic (5) Depressed affect Status: Chronic (6) Alcohol withdrawal seizure Status: Chronic Qualifiers: Complication of substance-induced condition: uncomplicated - AMA Did Patient Leave Against Medical Advice: No (F/U with PCP within 1-2 weeks.)
--- NOTE | 2018-09-09 00:10 | EKG ---
Test Reason : Blood Pressure : / mmHG Vent. Rate : 080 BPM Atrial Rate : 080 BPM P-R Int : 128 ms QRS Dur : 084 ms QT Int : 424 ms P-R-T Axes : 001 048 022 degrees QTc Int : 489 ms NORMAL SINUS RHYTHM PROLONGED QT ABNORMAL ECG WHEN COMPARED WITH ECG OF 03-SEP-2018 21:06, PREMATURE SUPRAVENTRICULAR COMPLEXES ARE NO LONGER PRESENT Confirmed by MD Ulises, Bebeto ([id number]) on 09/09/2018 12:10:03 AM Referred By: PARK ROCHA Confirmed By:Bebeto Montgomery MD
== END 2018-09-08 10:14 | disposition home or self-care (01) | DRG 775 ==
LOC: YASAS 15:51 → Y6N 20:41
PROVIDERS: ADMIT Surgery; ATTEND Surgery
PROC: HZ2ZZZZ Detoxification Services for Substance Abuse Treatment (ICD-10-PCS; principal; 2018-09-03)
DX: F10.230 Alcohol dependence with withdrawal, uncomplicated (principal); F10.280 Alcohol dependence with alcohol-induced anxiety disorder; F10.282 Alcohol dependence with alcohol-induced sleep disorder; F32.9 Major depressive disorder, single episode, unspecified; F43.10 Post-traumatic stress disorder, unspecified; F19.24 Other psychoactive substance dependence with psychoactive substance-induced mood disorder; D69.6 Thrombocytopenia, unspecified; R94.5 Abnormal results of liver function studies; R21 Rash and other nonspecific skin eruption; R00.0 Tachycardia, unspecified; R63.4 Abnormal weight loss; Z86.69 Personal history of other diseases of the nervous system and sense organs
CPT/HCPCS: 36415; 80053; 81025; 85025; 93005; 93010

== ENCOUNTER 2018-10-15 21:17 | Inpatient (IN) | payer OTHER ==
[2018-10-15 22:05] VITALS: BMI 30.8
--- NOTE | 2018-10-15 23:09 | HP ---
CIWA Score Nausea/Vomitin-Mild Nausea/No Vomiting Muscle Tremors: 1-None Visible, but [place] Anxiety: 4-Mod. Anxious/Guarded Agitation: 4-Moderately Restless Paroxysmal Sweats: 3 Orientation: 1-Uncertain about Date Tacttile Disturbances: 2-Mild Itch/Numbness/Burn (patients a a pruritic rash) Auditory Disturbances: 0-None Visual Disturbances: 0-None Headache: 0-None Present CIWA-Ar Total Score: 16 - Admission Criteria OASAS Guidelines: Admission for Medically Managed Detox: Requires at least one of the followin. CIWA greater than 12 2. Seizures within the past 24 hours 3. Delirium tremens within the past 24 hours 4. Hallucinations within the past 24 hours 5. Acute intervention needed for co occurring medical disorder 6. Acute intervention needed for co occurring psychiatric disorder 7. Severe withdrawal that cannot be handled at a lower level of care (continued vomiting, continued diarrhea, abnormal vital signs) requiring intravenous medication and/or fluids 8. Admission ROS [facility] Chief Complaint: C/O WITHDRAWAL SX'S. SEEKING DETOX Allergies/Adverse Reactions: Allergies Allergy/AdvReac Type Severity Reaction Status Date / Time No Known Allergies Allergy Verified 10/15/18 21:53 History of Present Illness: 48 Y.O. FEMALE WITH ALCOHOLISM PRESENTS WITH C/O WITHDRAWAL SX'S. CIWA 16. SEEKING DETOX TXMENT. CLIENT IS SELF REFERRED. LAST HERE 1 MONTH AGO BUT HAS SINCE RELAPSED. DRINKING DAILY. LAST DRINK EARLIER TODAY. HX/O ALCOHOL WITHDRAWAL SEIZURES REPORTED. LAST SEIZURE 2 YEARS AGO. . . REPORTS LONGEST CLEAN TIME 45 DAYS IN THE PAST 7 YEARS.. REPORTS BLACKOUTS, DENIES SI/HI/AVH. DOMICILED, EMPLOYED, DENIES LEGALS. Exam Limitations: No Limitations - Ebola screening Have you traveled outside of the country in the last 21 days: No (N) Have you had contact with anyone from an Ebola affected area: No Do you have a fever: No - Review of Systems Constitutional: Chills, Loss of Appetite, Night Sweats, Changes in sleep EENT: reports: Throat Pain (SORE) Respiratory: reports: No Symptoms reported Cardiac: reports: Palpitations GI: reports: Diarrhea, Nausea, Poor Appetite, Poor Fluid Intake, Vomiting, Abdominal cramping : reports: No Symptoms Reported Musculoskeletal: reports: No Symptoms Reported Integumentary: reports: Rash (X3 DAYS OF ITCHY RASH TO ARMS AND LEGS AND TRUNK) Neuro: reports: Seizure Endocrine: reports: No Symptoms Reported Hematology: reports: No Symptoms Reported Psychiatric: reports: Anxious, Depressed (DENIES SI/HI) Other Systems: Reviewed and Negative Patient History - Patient Medical History Hx Anemia: No Hx Asthma: No Hx Chronic Obstructive Pulmonary Disease (COPD): No Hx Cancer: No Hx Cardiac Disorders: No Hx Congestive Heart Failure: No Hx Hypertension: No Hx Hypercholesterolemia: No Hx Pacemaker: No HX Cerebrovascular Accident: No Hx Seizures: Yes (ALCOHOL WITHDRAWAL. LAST EPISODE 2 YEARS AGO) Hx Dementia: No Hx Diabetes: No Hx Gastrointestinal Disorders: No Hx Liver Disease: No Hx Genitourinary Disorders: No Hx Sexually Transmitted Disorders: No Hx Renal Disease (ESRD): No Hx Thyroid Disease: No Hx Human Immunodeficiency Virus (HIV): No Hx Hepatitis C: No Hx Depression: Yes Hx Suicide Attempt: No Hx Bipolar Disorder: No Hx Schizophrenia: No - Patient Surgical History Past Surgical History: No Hx Neurologic Surgery: No Hx Cataract Extraction: No Hx Cardiac Surgery: No Hx Lung Surgery: No Hx Breast Surgery: No Hx Breast Biopsy: No Hx Abdominal Surgery: No Hx Appendectomy: No Hx Cholecystectomy: No Hx Genitourinary Surgery: No Hx Section: No Hx Orthopedic Surgery: No Anesthesia Reaction: No - PPD History Previous Implant?: Yes Documented Results: Negative w/proof Implanted On Prior [facility] Admission?: Yes Date: 08/08/18 Results: 0MM PPD to be Administered?: No - Reproductive History Patient is a Female of Child Bearing Age (11 -55 yrs old): Yes Last Menstrual Period: 09/25/18 Patient : No (NEG [facility] [place]) - Smoking Cessation Smoking history: Never smoked Have you smoked in the past 12 months: Yes Aproximately how many cigarettes per day: 0 Cigars Per Day: 0 Hx Chewing Tobacco Use: No Initiated information on smoking cessation: No - Substance & Tx. History Substance Use Type: Alcohol Hx Substance Use Treatment: Yes ([facility]) - Substances abused Alcohol Substance route: Oral Frequency: Daily Amount used: 3 pints of vodka Age of first use: 41 Date of last use: 10/08/18 Family Disease History - Family Disease History Family History: Denies Admission Physical Exam BHS - Vital Signs Vital Signs: Vital Signs - 24 hr 10/15/18 21:50 Temperature 97.1 F L Pulse Rate 89 Respiratory 20 Rate Blood Pressure 136/91 - Physical General Appearance: Yes: Alcohol on Breath, Irritable, Anxious HEENTM: Yes: EOMI, Normocephalic, Normal Voice, ELIZABETH, Pharynx Normal Respiratory: Yes: Chest Non-Tender, Lungs Clear, Normal Breath Sounds, No Respiratory Distress, No Accessory Muscle Use Neck: Yes: No masses,lesions,Nodules, Supple, Trachea in good position Breast: Yes: Breast Exam Deferred Cardiology: Yes: Regular Rhythm, Regular Rate, S1, S2 Abdominal: Yes: Normal Bowel Sounds, Non Tender, Soft Genitourinary: Yes: Within Normal Limits Back: Yes: Normal Inspection Musculoskeletal: Yes: full range of Motion Extremities: Yes: Normal Capillary Refill, Normal Range of Motion, Non-Tender, Tremors (felt) Neurological: Yes: Alert, Motor Strength 5/5, Depressed Affect Integumentary: Yes: Dry, Warm, Erythema, Rash (poison lindsey/sumac dermatits no weeping noted to arms legs and trunk of body right outer -pruritis ankle with scab) Lymphatic: Yes: Within Normal Limits - Diagnostic (1) Alcohol dependence with uncomplicated withdrawal Current Visit: Yes Status: Acute (2) Alcohol-induced sleep disorder Current Visit: Yes Status: Acute (3) At risk for dehydration due to poor fluid intake Current Visit: Yes Status: Acute (4) Alcohol withdrawal seizure Current Visit: Yes Status: Chronic Qualifiers: Complication of substance-induced condition: uncomplicated Qualified Code(s ): F10.230 - Alcohol dependence with withdrawal, uncomplicated Comment: LAST 2 YEARS AGO. HX/O (5) Depressed affect Current Visit: Yes Status: Acute (6) PTSD (post-traumatic stress disorder) Current Visit: Yes Status: Chronic (7) Allergic dermatitis Current Visit: Yes Status: Acute (8) Poison lindsey dermatitis Current Visit: Yes Status: Acute Cleared for Admission BHS - Detox or Rehab S Level of Care: Medically Managed Detox Regimen/Protocol: Librium Claeared for Rehab Admission: No Breathalyzer - Breathalyzer Breathalyzer: 0.183 Urine Drug Screen - Test Device Lot number: [id number] Expiration date: 07/09/20 - Control Is test valid?: Yes - Results Drug screen NEGATIVE: No Urine drug screen results: BZO-Benzodiazepines Inpatient Rehab Admission - Rehab Decision to Admit Inpatient rehab admission?: No
[2018-10-15] MEDS ORDERED: chlordiazePOXIDE HCL 25 MG CAPSULE PO PRN (23:17)
[2018-10-15] MEDS ORDERED: IBUPROFEN 400 MG TABLET (FP) PO PRN (23:17)
[2018-10-15] MEDS ORDERED: MAGNESIUM HYDROX 2400MG/30ML ORAL SUSPENSION 30 ML CUP PO PRN (23:17)
[2018-10-15] MEDS ORDERED: MAG HYDROX/AL HYDROX/SIMETH 30 ML UNIT-DOSE CUP PO PRN (23:17)
[2018-10-15] MEDS ORDERED: hydrOXYzine PAMOATE 25 MG CAPSULE (FP) PO PRN (23:17)
[2018-10-15] MEDS ORDERED: ONDANSETRON *ODT* 4 MG TABLET SL PRN (23:17)
[2018-10-15] MEDS ORDERED: MAGNESIUM CITRATE 300 ML BOTTLE PO PRN (23:17)
[2018-10-15] MEDS ORDERED: DICYCLOMINE HCL 10 MG CAPSULE PO PRN (23:17)
[2018-10-15] MEDS ORDERED: MELATONIN 5 MG TABLETS PO PRN (23:17)
[2018-10-15] MEDS ORDERED: P-EPHED 60MG/TRIPROLIDI 2.5MG TABLET PO PRN (23:17)
[2018-10-15] MEDS ORDERED: guaiFENesin 200 MG/10 ML 10 ML UNIT-DOSE CUPS PO PRN (23:17)
[2018-10-15] MEDS ORDERED: ACETAMINOPHEN 325 MG TABLET (FP) PO PRN ×2 (23:17)
[2018-10-15] MEDS ORDERED: METHOCARBAMOL 500 MG TABLET PO PRN (23:17)
[2018-10-15] MEDS ORDERED: diphenhydrAMINE HCL 25 MG CAPSULE (FP) PO PRN (23:26)
[2018-10-15] MEDS ORDERED: HYDROCORTISONE 1% TOPICAL LOTION 118 ML BOTTLE TP SCH (23:30)
[2018-10-15] MEDS ORDERED: predniSONE 20 MG TABLET (UD) PO ONE (23:35)
[2018-10-16] MEDS: chlordiazePOXIDE HCL 25 MG CAPSULE PO SCH ×5 (00:42→22:34)
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
[2018-10-16] MEDS ORDERED: PRAMOXINE HCL/CALAMINE 177 ML LOTION TP SCH (10:00)
[2018-10-16] MEDS: PRENATAL VITAMINS W/ FOLIC ACID TABLET (FP) PO SCH (10:43)
[2018-10-16 11:14] LABS: ALBUMIN 3.4 g/dl (3.4-5.0); BILIRUBIN,TOTAL 0.8 mg/dL (0.2-1); BLOOD UREA NITROGEN 8.2 mg/dL (7-18); CALCIUM 8.3 mg/dL (8.5-10.1); CREATININE 0.6 mg/dL (0.55-1.3); POTASSIUM 4.1 mmol/L (3.5-5.1)
--- NOTE | 2018-10-16 11:23 | PN ---
S CIWA - CIWA Score Nausea/Vomitin-No Nausea/No Vomiting Muscle Tremors: 3 Anxiety: 3 Agitation: 3 Paroxysmal Sweats: 2 Orientation: 0-Oriented Tacttile Disturbances: 0-None Auditory Disturbances: 0-None Visual Disturbances: 0-None Headache: 0-None Present CIWA-Ar Total Score: 11 S Progress Note (SOAP) Subjective: sweats shakes interrupted sleep body aches anxiety Objective: 10/16/18 11:22 Vital Signs Temperature 98.1 F 10/16/18 09:58 Pulse Rate 88 10/16/18 09:58 Respiratory Rate 18 10/16/18 09:58 Blood Pressure 115/73 10/16/18 09:58 O2 Sat by Pulse Oximetry (%) Laboratory Tests 10/16/18 07:00 Sodium 136 Potassium 4.1 Chloride 101 Carbon Dioxide 26 Anion Gap 9 BUN 8.2 Creatinine 0.6 Est GFR (CKD-EPI)AfAm 126.69 Est GFR (CKD-EPI)NonAf 109.31 Random Glucose 116 H Calcium 8.3 L Total Bilirubin 0.8 AST 51 H ALT 39 Alkaline Phosphatase 90 Total Protein 7.0 Albumin 3.4 rest of labs pending aaox3 lying in bed no acute distress Assessment: 10/16/18 11:23 withdrawal sx Plan: continue detox increase fluids pending labs
[2018-10-16 11:46] LABS: HEMATOCRIT 37.7 % (32.4-45.2); HEMOGLOBIN 12.9 GM/dL (10.7-15.3); MCH 31.9 pg (25.7-33.7); MCHC 34.1 g/dl (32.0-36.0); MEAN CELL VOLUME 93.3 fl (80-96); MEAN PLT VOLUME 7.5 fl (7.5-11.1); PLATELET COUNT 191 K/MM3 (134-434); RBC 4.04 M/mm3 (3.60-5.2); RDW 15.5 % (11.6-15.6); WHITE BLOOD COUNT 3.6 K/mm3 (4.0-10.0)
[2018-10-16] MEDS: HYDROCORTISONE 1% TOPICAL CREAM 30 GM TUBE TP SCH ×4 (12:42→22:34)
[2018-10-16] MEDS: FLUoxetine HCL 20 MG CAPSULE (FP) PO SCH (12:42)
[2018-10-16 13:55] LABS: EPI CELLS 2.1 /HPF (0-5/HPF); HYALINE CASTS 28 /lpf (0-8); URINE APPEARANCE CLOUDY; URINE BILIRUBIN NEGATIVE (NEGATIVE); URINE COLOR YELLOW; URINE GLUCOSE (UA) NEGATIVE (NEGATIVE); URINE KETONE NEGATIVE (NEGATIVE); URINE LEUK ESTERASE 1+ (NEGATIVE); URINE NITRITE NEGATIVE (NEGATIVE); URINE PROTEIN NEGATIVE (NEGATIVE); URINE RBC 2 /hpf (0-4); URINE WBC 34 /hpf (0-5)
[2018-10-16] MEDS ORDERED: CALAMINE 8% TOPICAL LOTION 177 ML BOTTLE TP PRN (14:19)
[2018-10-16] MEDS: MENTHOL/PHENOL 1 EACH UD MM PRN (18:41)
[2018-10-16] MEDS: MELATONIN 5 MG TABLETS PO PRN (22:34)
[2018-10-16] MEDS: THIAMINE HCL 100 MG TABLET (FP) PO SCH (22:34)
[2018-10-17] MEDS: chlordiazePOXIDE HCL 25 MG CAPSULE PO SCH ×4 (06:00→22:21)
[2018-10-17] MEDS: PRENATAL VITAMINS W/ FOLIC ACID TABLET (FP) PO SCH (10:54)
[2018-10-17] MEDS: predniSONE 20 MG TABLET (UD) PO SCH (10:54)
[2018-10-17] MEDS: HYDROCORTISONE 1% TOPICAL CREAM 30 GM TUBE TP SCH ×4 (10:54→22:24)
[2018-10-17] MEDS: FLUoxetine HCL 20 MG CAPSULE (FP) PO SCH (10:54)
[2018-10-17] MEDS: BISMUTH SUBSALICYLATE 524 MG/30 ML UD PO PRN (11:54)
--- NOTE | 2018-10-17 14:07 | PN ---
[facility] CIWA - CIWA Score Nausea/Vomitin-No Nausea/No Vomiting Muscle Tremors: 3 Anxiety: 2 Agitation: 3 Paroxysmal Sweats: 2 Orientation: 0-Oriented Tacttile Disturbances: 0-None Auditory Disturbances: 0-None Visual Disturbances: 0-None Headache: 0-None Present CIWA-Ar Total Score: 10 S Progress Note (SOAP) Subjective: shakes sweats interrupted sleep sore throat rash all over body d/t poison lindsey Objective: 10/17/18 14:06 Vital Signs Temperature 97.9 F 10/17/18 13:41 Pulse Rate 87 10/17/18 13:41 Respiratory Rate 18 10/17/18 13:41 Blood Pressure 116/75 10/17/18 13:41 O2 Sat by Pulse Oximetry (%) Laboratory Tests 10/16/18 10/16/18 10/16/18 07:00 07:00 07:00 WBC 3.6 L RBC 4.04 Hgb 12.9 Hct 37.7 MCV 93.3 MCH 31.9 MCHC 34.1 RDW 15.5 Plt Count 191 D MPV 7.5 D Sodium 136 Potassium 4.1 Chloride 101 Carbon Dioxide 26 Anion Gap 9 BUN 8.2 Creatinine 0.6 Est GFR (CKD-EPI)AfAm 126.69 Est GFR (CKD-EPI)NonAf 109.31 Random Glucose 116 H Calcium 8.3 L Total Bilirubin 0.8 AST 51 H ALT 39 Alkaline Phosphatase 90 Total Protein 7.0 Albumin 3.4 Urine Color Urine Appearance Urine pH Ur Specific [place] Urine Protein Urine Glucose (UA) Urine Ketones Urine Blood Urine Nitrite Urine Bilirubin Urine Urobilinogen Ur Leukocyte Esterase Urine WBC (Auto) Urine RBC (Auto) Urine Casts (Auto) U Epithel Cells (Auto) Urine Bacteria (Auto) RPR Titer Nonreactive 10/16/18 09:00 WBC RBC Hgb Hct MCV MCH MCHC RDW Plt Count MPV Sodium Potassium Chloride Carbon Dioxide Anion Gap BUN Creatinine Est GFR (CKD-EPI)AfAm Est GFR (CKD-EPI)NonAf Random Glucose Calcium Total Bilirubin AST ALT Alkaline Phosphatase Total Protein Albumin Urine Color Yellow Urine Appearance Cloudy Urine pH 6.0 Ur Specific [place] 1.022 Urine Protein Negative Urine Glucose (UA) Negative Urine Ketones Negative Urine Blood Negative Urine Nitrite Negative Urine Bilirubin Negative Urine Urobilinogen 1.0 Ur Leukocyte Esterase 1+ H Urine WBC (Auto) 34 Urine RBC (Auto) 2 Urine Casts (Auto) 28 U Epithel Cells (Auto) 2.1 Urine Bacteria (Auto) 4741.0 RPR Titer labs noted repeat u/a aaox3 ambulating no acute distress Assessment: 10/17/18 14:07 withdrawal sx no s/s of throat infection no redness noted Plan: continue detox increase fluids repeat u/a continue with caladry lotion benadryl 50prn for itching throat lozenges prn
[2018-10-17] MEDS ORDERED: diphenhydrAMINE HCL 25 MG CAPSULE (FP) PO PRN (14:43)
[2018-10-17] MEDS: MENTHOL/PHENOL 1 EACH UD MM PRN (21:31)
[2018-10-17] MEDS: diphenhydrAMINE HCL 25 MG CAPSULE (FP) PO PRN (22:20)
[2018-10-17] MEDS: THIAMINE HCL 100 MG TABLET (FP) PO SCH (22:21)
[2018-10-17] MEDS: MELATONIN 5 MG TABLETS PO PRN (22:22)
[2018-10-18] MEDS ORDERED: chlordiazePOXIDE HCL 10 MG CAPSULE PO PRN
[2018-10-18] MEDS: chlordiazePOXIDE HCL 10 MG CAPSULE PO SCH ×4 (05:55→23:06)
[2018-10-18] MEDS: PRENATAL VITAMINS W/ FOLIC ACID TABLET (FP) PO SCH (10:58)
[2018-10-18] MEDS: predniSONE 20 MG TABLET (UD) PO SCH (10:58)
[2018-10-18] MEDS: FLUoxetine HCL 20 MG CAPSULE (FP) PO SCH (10:59)
[2018-10-18] MEDS: HYDROCORTISONE 1% TOPICAL CREAM 30 GM TUBE TP SCH ×3 (10:59→23:05)
--- NOTE | 2018-10-18 12:21 | PN ---
S CIWA - CIWA Score Nausea/Vomitin-No Nausea/No Vomiting Muscle Tremors: 2 Anxiety: 1-Mildly Anxious Agitation: 1-Slight > Activity Paroxysmal Sweats: No Perspiration Orientation: 0-Oriented Tacttile Disturbances: 0-None Auditory Disturbances: 0-None Visual Disturbances: 0-None Headache: 0-None Present CIWA-Ar Total Score: 4 BHS Progress Note (SOAP) Subjective: irritable agitation itchy skin but getting better Objective: 10/18/18 12:20 Vital Signs Temperature 97.9 F 10/18/18 10:14 Pulse Rate 73 10/18/18 10:14 Respiratory Rate 18 10/18/18 10:14 Blood Pressure 132/83 10/18/18 10:14 O2 Sat by Pulse Oximetry (%) Laboratory Tests 10/16/18 10/16/18 10/16/18 07:00 07:00 07:00 WBC 3.6 L RBC 4.04 Hgb 12.9 Hct 37.7 MCV 93.3 MCH 31.9 MCHC 34.1 RDW 15.5 Plt Count 191 D MPV 7.5 D Sodium 136 Potassium 4.1 Chloride 101 Carbon Dioxide 26 Anion Gap 9 BUN 8.2 Creatinine 0.6 Est GFR (CKD-EPI)AfAm 126.69 Est GFR (CKD-EPI)NonAf 109.31 Random Glucose 116 H Calcium 8.3 L Total Bilirubin 0.8 AST 51 H ALT 39 Alkaline Phosphatase 90 Total Protein 7.0 Albumin 3.4 Urine Color Urine Appearance Urine pH Ur Specific [place] Urine Protein Urine Glucose (UA) Urine Ketones Urine Blood Urine Nitrite Urine Bilirubin Urine Urobilinogen Ur Leukocyte Esterase Urine WBC (Auto) Urine RBC (Auto) Urine Casts (Auto) U Epithel Cells (Auto) Urine Bacteria (Auto) RPR Titer Nonreactive 10/16/18 09:00 WBC RBC Hgb Hct MCV MCH MCHC RDW Plt Count MPV Sodium Potassium Chloride Carbon Dioxide Anion Gap BUN Creatinine Est GFR (CKD-EPI)AfAm Est GFR (CKD-EPI)NonAf Random Glucose Calcium Total Bilirubin AST ALT Alkaline Phosphatase Total Protein Albumin Urine Color Yellow Urine Appearance Cloudy Urine pH 6.0 Ur Specific [place] 1.022 Urine Protein Negative Urine Glucose (UA) Negative Urine Ketones Negative Urine Blood Negative Urine Nitrite Negative Urine Bilirubin Negative Urine Urobilinogen 1.0 Ur Leukocyte Esterase 1+ H Urine WBC (Auto) 34 Urine RBC (Auto) 2 Urine Casts (Auto) 28 U Epithel Cells (Auto) 2.1 Urine Bacteria (Auto) 4741.0 RPR Titer labs noted repeat u/a pending aaox3 ambulating no acute distress Assessment: 10/18/18 12:20 mild withdrawal sx Plan: continue detox increase fluids cont with benadryl prn
[2018-10-18] MEDS: diphenhydrAMINE HCL 25 MG CAPSULE (FP) PO PRN ×2 (15:06→23:07)
[2018-10-18] MEDS: BISMUTH SUBSALICYLATE 524 MG/30 ML UD PO PRN (18:00)
[2018-10-18] MEDS: THIAMINE HCL 100 MG TABLET (FP) PO SCH (23:06)
[2018-10-18] MEDS: MELATONIN 5 MG TABLETS PO PRN (23:07)
[2018-10-19] MEDS: chlordiazePOXIDE HCL 10 MG CAPSULE PO SCH ×2 (05:31→17:44)
[2018-10-19 10:22] LABS: EPI CELLS 1.2 /HPF (0-5/HPF); HYALINE CASTS 0 /lpf (0-8); URINE APPEARANCE CLEAR; URINE BACTERIA 202.9 /hpf (NEGATIVE); URINE BILIRUBIN NEGATIVE (NEGATIVE); URINE COLOR YELLOW; URINE GLUCOSE (UA) NEGATIVE (NEGATIVE); URINE KETONE NEGATIVE (NEGATIVE); URINE LEUK ESTERASE 1+ (NEGATIVE); URINE NITRITE NEGATIVE (NEGATIVE); URINE PROTEIN NEGATIVE (NEGATIVE); URINE RBC 1 /hpf (0-4); URINE UROBILINOGEN 0.2 mg/dL (0.2-1.0); URINE WBC 5 /hpf (0-5)
[2018-10-19] MEDS: FLUoxetine HCL 20 MG CAPSULE (FP) PO SCH (10:50)
[2018-10-19] MEDS: PRENATAL VITAMINS W/ FOLIC ACID TABLET (FP) PO SCH (10:50)
[2018-10-19] MEDS: predniSONE 20 MG TABLET (UD) PO SCH (10:50)
[2018-10-19] MEDS: HYDROCORTISONE 1% TOPICAL CREAM 30 GM TUBE TP SCH ×3 (10:50→17:45)
--- NOTE | 2018-10-19 13:28 | PN ---
[facility] CIWA - CIWA Score Nausea/Vomitin-No Nausea/No Vomiting Muscle Tremors: 1-None Visible, but [place] Anxiety: 1-Mildly Anxious Agitation: 0-Normal Activity Paroxysmal Sweats: No Perspiration Orientation: 0-Oriented Tacttile Disturbances: 0-None Auditory Disturbances: 0-None Visual Disturbances: 0-None Headache: 0-None Present CIWA-Ar Total Score: 2 BHS Progress Note (SOAP) Subjective: little anxiety Objective: 10/19/18 13:27 Vital Signs Temperature 97.7 F 10/19/18 09:39 Pulse Rate 73 10/19/18 09:39 Respiratory Rate 16 10/19/18 09:39 Blood Pressure 125/82 10/19/18 09:39 O2 Sat by Pulse Oximetry (%) aaox3 ambulating no acute distress Assessment: 10/19/18 13:27 mild withdrawal sx Plan: continue detox increase fluids d/c in am
[2018-10-19 20:57] VITALS: BP 116/76; PULSE 67; TEMP 97.7
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
[2018-10-20] MEDS ORDERED: chlordiazePOXIDE HCL 10 MG CAPSULE PO ONE (05:00)
== END 2018-10-19 21:29 | disposition home or self-care (01) | DRG 775 ==
LOC: YASAS 21:17 → Y6N 23:08
PROVIDERS: ADMIT Surgery; ATTEND Surgery
PROC: HZ2ZZZZ Detoxification Services for Substance Abuse Treatment (ICD-10-PCS; principal; 2018-10-15)
DX: F10.230 Alcohol dependence with withdrawal, uncomplicated (principal); F10.24 Alcohol dependence with alcohol-induced mood disorder; F10.282 Alcohol dependence with alcohol-induced sleep disorder; F43.10 Post-traumatic stress disorder, unspecified; F32.9 Major depressive disorder, single episode, unspecified; R63.8 Other symptoms and signs concerning food and fluid intake; L23.7 Allergic contact dermatitis due to plants, except food; Z86.69 Personal history of other diseases of the nervous system and sense organs
CPT/HCPCS: 36415; 80053; 81003; 81025; 85027; 86593